=== PATIENT | female | born 1955 | race Caucasian/White ===

== ENCOUNTER 2020-08-04 08:16 | Outpatient (CLI) | payer OTHER | END 2020-08-04 08:17 | disposition home or self-care (01) | LOC: CSHCT 08:16 | PROVIDERS: ATTEND Internal Medicine Hematology & Oncology | DX: C20 Malignant neoplasm of rectum (principal); C78.7 Secondary malignant neoplasm of liver and intrahepatic bile duct; C78.00 Secondary malignant neoplasm of unspecified lung; R91.8 Other nonspecific abnormal finding of lung field; Z98.890 Other specified postprocedural states | CPT/HCPCS: 71260; 74177; 82565 ==

== ENCOUNTER 2022-04-17 10:16 | Outpatient (CLI) | payer BC ==
[2022-04-17] MEDS ORDERED: Iopamidol 300 61% 100 ML VIAL FS ONE (12:17)
== END 2022-04-17 10:17 | disposition home or self-care (01) ==
LOC: CSHCT 10:16
PROVIDERS: ATTEND Internal Medicine Hematology & Oncology
DX: C20 Malignant neoplasm of rectum (principal); C78.7 Secondary malignant neoplasm of liver and intrahepatic bile duct; C79.51 Secondary malignant neoplasm of bone; K76.9 Liver disease, unspecified; R91.8 Other nonspecific abnormal finding of lung field; Z98.890 Other specified postprocedural states
CPT/HCPCS: 71260; 74177; 82565